=== PATIENT | female | born 1930 | race Caucasian/White ===

== ENCOUNTER 2017-02-25 13:31 | Emergency (ER) | payer MEDICARE ==
[~2017-02-25] VITALS: Ht 160 cm; Wt 63.5 kg
[2017-02-25] MEDS ORDERED: HYDROcodone/APAP 5/325MG 1 TAB TABLET PO ONE (13:45)
--- NOTE | 2017-02-25 14:20 | RAD ---
Left elbow 3 views. History: Pain after a fall. 3 views were taken of the left elbow. There is extensive soft tissue swelling posteriorly. There is a displaced transverse fracture through the olecranon process of the ulna. No other fracture is identified. Impression: 1. Fracture of the olecranon process of the ulna.
--- NOTE | 2017-02-25 14:28 | RAD ---
CT brain without contrast, CT cervical spine without contrast. History: Fall, large left scalp hematoma, history of dementia CT brain CT scan of brain was done without contrast. There is a posterior parietal extracranial hematoma on the left. There is no intracranial hemorrhage or subdural hematoma. Ventricles are normal in size. There is extensive decreased density in the white matter from microvascular changes. Sinuses are clear. A skull fracture is not identified. CT cervical spine Axial CT images were obtained through the cervical spine. There is extensive facet arthritis and degenerative change in the cervical spine. An acute C-spine fracture is not identified. There is degenerative disc disease at C5-6 and C6-7. There is extensive facet arthritis at multiple levels. There is slight degenerative subluxation at C4-5. Impression: 1. Extracranial hematoma on the left. 2. No intracranial hemorrhage or acute finding noted on the CT brain. 3. Extensive degenerative change in the cervical spine. 4. No acute C-spine fracture. One or more of the following individualized dose reduction techniques were utilized for this examination: 1. Automated exposure control 2. Adjustment of the mA and/or kV according to patient size 3. Use of iterative reconstruction technique
--- NOTE | 2017-02-25 14:30 | PHYS DOC ---
Past Medical History Past Medical History: Dementia, Hypertension Past Surgical History: Other Additional Past Surgical Histo: Fx.hip and pelvis Alcohol Use: None Drug Use: None Adult General Chief Complaint Chief Complaint: MECHANICAL FALL HPI HPI Patient is a 86 year old female presenting to the emergency department for evaluation of head and left elbow pain status post fall [place] a horse [place]. Early she slipped and fell backwards striking her left elbow and her head. She has a fairly large hematoma to the left parietal area posteriorly in addition she has a hematoma to her left elbow. She has some dementia and cannot recall all the details of the incident or her medical history but she seems to think her tetanus shot is up-to-date. She denies any neck chest abdomen pelvis back or other extremity pain. She is nontoxic-appearing in no obvious distress with normal vital signs. Review of Systems Review of Systems Constitutional: Denies fever or chills [] Eyes: Denies change in visual acuity, redness, or eye pain [] HENT: Denies nasal congestion or sore throat [] Respiratory: Denies cough or shortness of breath [] Cardiovascular: No additional information not addressed in HPI [] GI: Denies abdominal pain, nausea, vomiting, bloody stools or diarrhea [] : Denies dysuria or hematuria [] Musculoskeletal: Denies back pain. + l elbow pain Integument: Denies rash or skin lesions [] Neurologic: + headache. No focal weakness or sensory changes [] All other systems were reviewed and found to be within normal limits, except as documented in this note. Current Medications Current Medications Current Medications Medications (Trade) Dose Ordered Sig/Tyrone Start Time Stop Time Status Last Admin Dose Admin Acetaminophen/ Hydrocodone Bitart (Lortab 5/325) 1 tab 1X ONCE 02/25/17 13:45 02/25/17 14:32 DC Allergies Allergies Allergies Coded Allergies Type Severity Reaction Last Updated Verified No Known Drug Allergies 02/25/17 No Physical Exam Physical Exam Constitutional: Well developed, well nourished, no acute distress, non-toxic appearance. [] HENT: Normocephalic, large contusion to left posterior parietal scalp, bilateral external ears normal, oropharynx moist, no oral exudates, nose normal. [] Eyes: PERRLA, EOMI, conjunctiva normal, no discharge. [] Neck: Normal range of motion, no tenderness, supple, no stridor. [] Cardiovascular:Heart rate regular rhythm, no murmur [] Lungs & Thorax: Bilateral breath sounds clear to auscultation [] Abdomen: Bowel sounds normal, soft, no tenderness, no masses, no pulsatile masses. [] Skin: Warm, dry, no erythema, no rash. [] Back: No tenderness, no CVA tenderness. [] Extremities: Pain with range of motion of left elbow and fairly large hematoma noted. Neurologic: Alert and oriented X 3, normal motor function, normal sensory function, no focal deficits noted. [] Current Patient Data Vital Signs Vital Signs Date Time Temp Pulse Resp B/P (MAP) Pulse Ox O2 Delivery O2 Flow Rate FiO2 02/25/17 13:31 97.6 80 18 175/72 (106) 98 Room Air 97.6 EKG EKG [] Radiology/Procedures Radiology/Procedures Left elbow 3 views. History: Pain after a fall. 3 views were taken of the left elbow. There is extensive soft tissue swelling posteriorly. There is a displaced transverse fracture through the olecranon process of the ulna. No other fracture is identified. Impression: 1. Fracture of the olecranon process of the ulna. DICTATED and SIGNED BY: JESU GORDON MD DATE: 02/25/17 1415 Course & Med Decision Making Course & Med Decision Making Imaging negative except for her olecranon process fracture to left elbow. She will be put in sling follow orthopedic surgery. Patient and family aware and agreeable with plan for discharge and verbalized understanding of the need for short-term follow-up in the strict ED return precautions discussed worsening pain fevers or other general concerns. Dragon Disclaimer Dragon Disclaimer This electronic medical record was generated, in whole or in part, using a voice recognition dictation system. Departure Departure Impression: Primary Impression: Olecranon fracture Additional Impression: Head contusion Disposition: 01 HOME, SELF-CARE Condition: STABLE Referrals: JOSE ALVAREZ MD Patient Instructions: Elbow Fracture, Simple Scripts Hydrocodone/Apap 5-325 (NORCO 5-325 TABLET) 1 Each Tablet 1 TAB PO PRN Q6HRS Y for PAIN, #10 TAB 0 Refills Prov: EDEL ADAMS DO 02/25/17 Problem Qualifiers Primary Impression: Olecranon fracture Encounter type: initial encounter Fracture type: closed Laterality: left Qualified Codes: S52.022A - Displaced fracture of olecranon process without intraarticular extension of left ulna, initial encounter for closed fracture EDEL ADAMS DO Feb 25, 2017 14:30
[2017-02-25] MEDS ORDERED: HYDR-971 PO (14:56)
[2017-02-25 15:00] VITALS: BP 169/70
== END 2017-02-25 15:28 | disposition home or self-care (01) ==
LOC: ER 13:31
DX: S52.022A Displaced fracture of olecranon process without intraarticular extension of left ulna, initial encounter for closed fracture (principal); S00.03XA Contusion of scalp, initial encounter; I10 Essential (primary) hypertension; F03.90 Unspecified dementia, unspecified severity, without behavioral disturbance, psychotic disturbance, mood disturbance, and anxiety; W01.198A Fall on same level from slipping, tripping and stumbling with subsequent striking against other object, initial encounter; Y93.89 Activity, other specified; Y92.89 Other specified places as the place of occurrence of the external cause; Y99.8 Other external cause status
CPT/HCPCS: 70450; 72125; 73080; 99284-25